=== PATIENT | male | born 1955 | race Caucasian/White ===

== ENCOUNTER 2017-08-21 07:44 | Emergency (ER) | payer OTHER ==
[2017-08-21] MEDS: ACETAMINOPHEN 325 MG TAB PO (08:11)
== END 2017-08-21 09:59 | disposition home or self-care (01) ==
LOC: FTE 07:44
DX: S62.112A Displaced fracture of triquetrum [cuneiform] bone, left wrist, initial encounter for closed fracture (principal); F17.210 Nicotine dependence, cigarettes, uncomplicated; W18.39XA Other fall on same level, initial encounter; Y92.9 Unspecified place or not applicable
CPT/HCPCS: 29125; 73110-LT; 73130-LT; 99283-25